=== PATIENT | female | born 1970 | race Caucasian/White ===

== ENCOUNTER 2016-11-06 16:01 | Outpatient (RCR) | payer BC ==
--- NOTE | 2016-11-13 11:35 | PT/OT/ST INITIAL EVALUATION ---
Department of Health and Human Services Form Approved [facility] Care Financing Administration OMB No. [id number] PLAN OF CARE/ASSESSMENT FOR OUTPATIENT REHABILITATION (Complete for Initial Claims Only) 1. PATIENT'S NAME Bi Quinones 2. ACC # [id number] 3. HICN NA 4. PROVIDER NO. NA 5. TYPE: PT 6. PRIOR HOSPITALIZATION NA 7. PRIMARY DX Right scapular muscle spasms 8. SECONDARY DX NA 9. ONSET DATE 2 to 3 months ago 10. REFERRAL DATE 10/30/2016 11. SOC. DATE 11/06/2016 12. TIME OF EVAL 16:09 to 17:[address] Bo Rodriguez 13. CHARGES/UNITS Evaluation 41539 1 unit of manual therapy 53283 1 unit of therapeutic exercise 93061 14. G CODES NA 15. PRIOR LEVEL OF FUNCTION; PERTINENT HISTORY (Prior therapy results, reason for referral.) S: Prior to therapy the patient consented to today's evaluation and treatment. The patient is a 46-year-old female who presents to physical therapy with a referral from Dr. Bo Rodriguez to address right scapular muscle spasms. The patient notes she had an insidious of pain around the right shoulder blade that started 2 to 3 months ago. She describes the pain as intermittent along the right medial border of the scapula, but it can shoot around her rib cage. Occasionally the pain does improve on its own, but she presents today with a flare up of the pain. 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 The patient reports that issue has not specifically limited her ability to complete this task, but can be irritating at times. The patient also enjoys going to movies, plays and traveling. Current level of function: The patient is still able to complete all activities of daily living and work related tasks; however, they are painful depending upon irritation of the right scapular region. Therapy History: The patient has had no therapy for this issue. Pain level: Current pain level is 2/10, maximum pain level is 8/10. The pain is described as an aching this date, but can be sharp shooting. The patient denies any numbness or tingling in the mid back or down the right upper extremity. Aggravating factors: The pain is aggravated with arm movement. Relieving factors: It is relieved by rest, and as stated prior, it can improve on its own. Diagnostic testing: The patient has not undergone any diagnostic testing at this time. Past medical history: Includes gallbladder surgery, diabetes mellitus and hypertension. Current medications: The patient is currently taking Humalog, Lantus, Victoza, and additional medications were provided, however, the therapist is unable to clarify them this date. Activity level: Low. Personal health rating: Good Patient's Goal: The patient's goal for physical therapy is to be able to learn stretches and make her pain go away. 16. INITIAL ASSESSMENT/SAFETY PRECAUTIONS/MEDICAL COMPLICATIONS (Level of function at start of care. Be specific, use objective measures, list problems.) O: APPEARANCE, OBSERVATION AND GAIT: Observation of the patient's posture reveals forward head positioning, bilaterally rounded shoulders and bilateral scapular abduction. PALPATION: The patient has right parascapular musculature tightness and tenderness, tight upper trapezii on the left side, and bilateral thoracic paraspinal tightness and pain. Palpation of rib 7, revealed pain. MOBILITY: The patient demonstrates hypomobility from T4 through T11 with posterior rib subluxation palpable at T7 with significant muscle guarding around this area. RANGE OF MOTION/FLEXIBILITY: No limitations in cervical spine range of motion in all planes and equal and non-limited bilateral upper extremity movement. STRENGTH: Bilateral shoulder flexion, and abduction 5/5. Bilateral shoulder internal and external rotation 4-/5. Bilateral rhomboid strength 3+/5, bilateral lower trapezii strength 3+/5. TODAY'S TREATMENT: The patient was educated on the findings of the evaluation and recommended treatment plan. The physical therapist performed manual therapy techniques to improve mobility and rib alignment. The patient was also instructed on therapy exercising to improve range of motion and mobility through the thoracic spine, as well as begin strengthening of the parascapular musculature. The patient did have decreased pain following treatment. 17. 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 She does have significant hypomobility throughout her thoracic spine with rib 7 posteriorly subluxed. PROGNOSIS: The patient does have a good outcome with therapy attendance, compliance with work space set up and compliance with her home exercise program. OUTCOME ASSESSMENT: The patient scores 11.4% disability on the [employer]. INFORMED CONSENT: The diagnosis, prognosis, risks and expected outcomes were discussed with this patient and she is agreeable to today's established plan of care. SHORT TERM GOALS: 1. The patient will report independence and compliance with home exercise program. 2. The patient will regain normalized mobility throughout T4 through T11 to decrease pain and improve the ability of her ribs to stay in neutral alignment. 3. The patient will improve bilateral rhomboid and lower trapezii strength to be a minimum of 4/5 to improve parascapular muscle strength and improved upright posture. 4. The patient will report complete resolution of her right parascapular muscle pain in order to complete work tasks and begin a workout program as the patient has reported she would like to do this. P: Plan to see this patient 2 times a week for 4 weeks in order to address pain in the right scapular region, significant hypomobility in the thoracic spine, as well as weakness in the parascapular musculature. Treatment will include modalities as needed to decreased pain and muscle spasm. Manual therapy will be utilized to improve joint mobility and decreased muscle tightness and will include joint mobilization, myofascial release, soft tissue and deep tissue mobilization. Muscle energy techniques will also be utilized to improve rib alignment. Therapeutic exercise will emphasize on regaining thoracic spine mobility with progressive strengthening of the parascapular musculature. Neuromuscular reeducation will be used to also improve scapular stabilization. The patient will also be educated on functional training, including proper work space ergonomics. The patient was provided a home exercise program and this will be progressed as needed. Thank you for the referral of this patient. 18. FREQUENCY 2 times per week 19. DURATION 4 weeks 20. FUNCTIONAL LEVEL (End of claim period) 21. PHYSICIAN SIGNATURE ? ON FILE OR ENTER HERE: 22. DATE: I certify the need for these services furnished under this plan of care and if for partial hospitalization. 23. CERTIFICATION FROM THROUGH FORM [facility]-[id number]
== END 2016-11-26 11:11 | disposition home or self-care (01) ==
LOC: PT 16:01
PROVIDERS: ATTEND Family Medicine
DX: M62.838 Other muscle spasm (principal); M79.1 Myalgia